=== PATIENT | female | born 1975 ===

== ENCOUNTER → 2020-04-26 | Day surgery (SDC) | payer OTHER ==
[2020-04-24 16:22] VITALS: BMI 26.1
== END | disposition home or self-care (01) ==
LOC: EDBD → JASU-SURG 04:20 → EDBD 11:30
PROVIDERS: ATTEND Surgery
DX: Z53.8 Procedure and treatment not carried out for other reasons (principal)
CPT/HCPCS: 84703

== ENCOUNTER 2020-05-07 04:53 | Day surgery (SDC) | payer OTHER ==
[2020-05-06 10:52] VITALS: BMI 26.1
[~2020-05-07 04:53] MED LIST: LIDOCAINE HCL 1%, 10 MG/ML (20ML VIAL) NR ONE
[2020-05-07] MEDS ORDERED: METHYLENE BLUE 50 MG/10 ML AMPUL ONE (10:56)
[2020-05-07] MEDS ORDERED: DEXAMETHASONE SOD PHOSPHATE 4 MG/1 ML VIAL ONE (12:15)
[2020-05-07] MEDS ORDERED: LIDOCAINE HCL/PF 2% SDV 5ML VIAL ONE (12:15)
[2020-05-07] MEDS ORDERED: PROPOFOL 20 ML ONE (12:15)
[2020-05-07] MEDS ORDERED: MIDAZOLAM HCL 2 MG/2 ML SINGLE DOSE VIAL ONE (12:15)
[2020-05-07] MEDS ORDERED: ceFAZolin SODIUM 1 GM VIAL ONE (13:33)
[2020-05-07] MEDS ORDERED: LIDOCAINE HCL 1%, 10 MG/ML (20ML VIAL) NR ONE (13:48)
[2020-05-07] MEDS ORDERED: ONDANSETRON 4 MG/2 ML VIAL IVPUSH PRN (14:08)
[2020-05-07] MEDS ORDERED: oxyCODONE HCL 5 MG TABLET PO PRN (14:08)
[2020-05-07] MEDS ORDERED: LACTATED RINGERS SOLUTION 1,000 ML IV SCH (14:15)
[2020-05-07] MEDS ORDERED: KETOROLAC TROMETHAMINE 30 MG/1 ML VIAL ONE (14:34)
[2020-05-07] MEDS ORDERED: oxyCODONE HCL 5 MG TABLET ONE (15:54)
[2020-05-07 17:53] VITALS: BP 118/79; PULSE 72; TEMP 97.8
--- NOTE | 2020-05-10 17:20 | PATH ---
Surgical Pathology Report Patient Name: DAVIDA SPARKS [facility]. Rec. #: [id number] /Age/Gender: 1975 (Age: 44) / F Account: [id number] Location: [facility] SURGICAL Taken: 05/07/2020 Received: 05/08/2020 Reported: 05/10/2020 Physicians: Page Gutierrez M.D. Specimen(s) Received A: RIGHT AXILLARY SENTINEL LYMPH NODE #1 BLUE AND HOT B: RIGHT AXILLARY NON SENTINEL LYMPH NODE C: RIGHT AXILLARY SENTINEL LYMPH NODE #2 BLUE AND HOT D: RIGHT AXILLARY SENTINEL LYMPH NODE #3 BLUE AND HOT E: RIGHT BREAST LUMPECTOMY F: RIGHT BREAST NEW POSTERIOR MARGIN Clinical History Invasive Final Diagnosis A. AXILLARY SENTINEL LYMPH NODE #1, RIGHT, BLUE AND HOT, EXCISION: ONE LYMPH NODE WITH METASTATIC CARCINOMA (MACROMETASTASIS, > 2 MM, 08/02). TUMOR DEPOSIT MEASURES 1.7 CM IN GREATEST MICROSCOPIC DIMENSION. EXTRANODAL EXTENSION IDENTIFIED. B. AXILLARY NON-SENTINEL LYMPH NODE, RIGHT, EXCISION: ONE OF TWO LYMPH NODES WITH METASTATIC CARCINOMA (MACROMETASTASIS, > 2 MM, 08/03). TUMOR DEPOSIT MEASURES 1.3 CM IN GREATEST MICROSCOPIC DIMENSION. EXTRANODAL EXTENSION IDENTIFIED. C. AXILLARY SENTINEL LYMPH NODE #2, RIGHT, BLUE AND HOT, EXCISION: ONE LYMPH NODE WITH METASTATIC CARCINOMA (MICROMETASTASIS, > 0.2 MM-<2MM, 08/02) ON H&E AND CONFIRMED BY AE1/3 IMMUNOHISTOCHEMICAL STAIN. TUMOR DEPOSIT MEASURES 1 MM IN GREATEST MICROSCOPIC DIMENSION. EXTRANODAL EXTENSION IDENTIFIED. D. AXILLARY SENTINEL LYMPH NODE #3, RIGHT, BLUE AND HOT, EXCISION: ONE OF TWO LYMPH NODES WITH METASTATIC CARCINOMA (MACROMETASTASIS, > 2 MM, 08/03). TUMOR DEPOSIT MEASURES 4 MM IN GREATEST MICROSCOPIC DIMENSION. NO EXTRANODAL EXTENSION IDENTIFIED. E. BREAST, RIGHT, LUMPECTOMY: INVASIVE DUCTAL CARCINOMA, MODERATELY DIFFERENTIATED (TUBULE SCORE: 3/3, NUCLEAR GRADE: 2/3, MITOTIC SCORE: 1/3; TOTAL GRACE SCORE: 6/9). INVASIVE CARCINOMA MEASURES 2.6 CM IN GREATEST MICROSCOPIC DIMENSION. EXTENSIVE DUCTAL CARCINOMA IN SITU (DCIS), INTERMEDIATE NUCLEAR GRADE, SOLID AND CRIBRIFORM TYPES WITH MODERATE NECROSIS. LYMPHOVASCULAR INVASION IDENTIFIED. LATERAL SURGICAL MARGIN IS FOCALLY INVOLVED BY INVASIVE CARCINOMA (UNIFOCAL), REMAINDER OF MARGINS ARE >2 MM AWAY. DCIS IS 1 MM FROM INFERIOR AND LATERAL MARGINS SEE SPECIMEN F FOR FINAL POSTERIOR MARGIN. PRIOR BIOPSY SITE CHANGES ARE PRESENT. PATHOLOGIC STAGE (pTNM, 8th EDITION): pT2 pN2a. SEE CASE SUMMARY BELOW. F. BREAST, RIGHT, NEW POSTERIOR MARGIN, EXCISION: BENIGN FIBROADIPOSE TISSUE. Comment: Immunohistochemical stains performed and interpreted at [facility] show the invasive carcinoma is positive for AE1/3 and E-Cadherin (membranous), supportive of ductal phenotype. Case seen in intradepartmental review with consensus on diagnosis. Comments Breast Invasive Carcinoma: Surgical Pathology Case Summary (Based on AJCC TNM 8 th edition) Procedure _X_ Excision (less than total mastectomy) Specimen Laterality _X_ Right Tumor Size _X_ Greatest dimension of largest invasive focus >1 mm (millimeters): 26 mm Histologic Type _X_ Invasive carcinoma of no special type, NOS (ductal) . Histologic Grade (Grace Histologic Score) Glandular (Acinar)/Tubular Differentiation _X_ Score 3 (<10% of tumor area forming glandular/tubular structures) Nuclear Pleomorphism _X__ Score 2 Mitotic Rate _X_ Score 1 Overall Grade _X_ Grade 2 (scores of 6) Tumor Focality _X_ Single focus of invasive carcinoma Ductal Carcinoma In Situ (DCIS) _X_ DCIS is present in specimen _X_ Positive for extensive intraductal component ( EIC) Margins Invasive Carcinoma Margins _X__ Positive for invasive carcinoma _X__ Lateral Extent: Unifocal Remainder of margins: 2 mm from inferior and deep margins DCIS Margins _X__ Uninvolved by DCIS Distance from closest margin (millimeters): 1 mm from inferior and lateral margins Regional Lymph Nodes _X__ Involved by tumor cells Number of Lymph Nodes with Macrometastases (>2 mm): 3 Number of Lymph Nodes with Micrometastases (>0.2 mm to 2 mm and/or >200 cells): 1 Number of Lymph Nodes with Isolated Tumor Cells (=0.2 mm and =200 cells): 0 Size of Largest Metastatic Deposit (millimeters): 17 mm Extranodal Extension: _X_ Present Extent of extranodal extension: _X__ > 2 mm Treatment Effect in the Breast _X_ No known presurgical therapy Lymphovascular Invasion _X_ Present Pathologic Stage Classification (pTNM, AJCC 8th Edition) Primary Tumor (Invasive Carcinoma) (pT) _X__ pT2: Tumor >20 mm but =50 mm in greatest dimension Regional Lymph Nodes (pN) Category (pN) _X__ pN2a: Metastases in 4 to 9 axillary lymph nodes (at least 1 tumor deposit larger than 2.0 mm) Biomarker Studies Results of ER and DE studies performed on this specimen (block#E1) at [facility] are as follows: ER (clone [id number] mouse monoclonal antibody by [employer]): _X_ Positive: ~85% nuclear staining with moderate intensity PgR (clone16 mouse monoclonal antibody by [employer]): _X_ Positive: ~90% nuclear staining with strong intensity Results of Her2 and Ki67 studies will be reported separately in an addendum. Positive and negative controls (internal if applicable) show appropriate results. Formalin fixation and cold ischemic times are within current ASCO/CAP recommendations for ER, PgR and Her2 testing. Electronically Signed Anamika Terrazas M.D. Addendum Reported: 05/13/2020 Addendum Diagnosis Results of Her2 (IHC) & Ki-67 studies performed on block "E1" at [place], [place] ([id number]) are as follows: Her2 IHC (EP3 from [employer], formerly known as [id number], using [employer] Refine detection kit): 2+ (Equivocal). Ki-67: ~12% (Low proliferative index). HER2 by FISH pending, findings will be reported separately. Case discussed with Dr. Gutierrez, 05/13/2020. Positive and negative controls (internal if applicable) show appropriate results. Anamika Terrazas M.D. Gross Description A. Received in formalin labeled "right axillary sentinel lymph node #1," is a 2.3 x 1.3 x 0.9 cm lymph node with attached fat. The specimen is trisected and entirely submitted in 3 cassettes. B. Received in formalin labeled "right axillary non-sentinel lymph node," is a 2.5 x 2.1 x 0.8 cm lymph node with attached fat. The specimen is bisected. There is an additional 0.5 x 0.3 x 0.3 cm lymph node identified. The specimen is entirely submitted in 2 cassettes as follows: 2-6-fgcjiznw larger lymph node; 3-smaller lymph node. C. Received in formalin labeled "right axillary sentinel lymph node #2," is a 0.6 x 0.5 x 0.2 cm lymph node. The specimen is submitted in toto in one cassette. D. Received in formalin labeled "right axillary sentinel lymph node #3," are 2 nath lymph nodes with attached fat measuring 0.7 x 0.5 x 0.4 cm and 1.4 x 0.8 x 0.6 cm. The lymph nodes are bisected and entirely submitted in 2 cassettes as follows: 1-2-one bisected lymph node each. E. Received in formalin, labeled "right breast lumpectomy," is a 6.0 x 4.5 x 4.0 cm. nath-yellow, irregular, portion of fibroadipose tissue. There is a short suture marking the superior aspect and a long suture marking the lateral aspect, per the surgeon. There is no skin or nipple present. The specimen is inked as follows: superior and lateral blue; inferior green; medial yellow; anterior red; deep black. The specimen is serially sectioned from superior to inferior. Sectioning reveals a 2.3 x 2.0 x 1.3 cm nath, indurated, ill-defined mass. The mass focally abuts the lateral margin. The mass is 0.3 cm from the inferior margin and 0.4 cm from the deep margin. Engineer [employer] sections are submitted in 10 cassettes as follows: 1-full face section of mass with lateral and deep margins; 4-9-qyulmyvrky sections of mass with lateral and deep margins; 6-7-mass with inferior margin; 8-anterior margin; 9-medial margin; 10-superior margin. Total formalin fixation time breast: Approximately 24 hours F. Received in formalin labeled "right breast new posterior margin," is a 3.5 x 2.6 x 0.7 cm portion of fibroadipose tissue with a suture marking the old margin, per the surgeon. The new margin is inked blue and the specimen is serially sectioned. The specimen is entirely and sequentially submitted in 4 cassettes. 05/08/202005/08/2020
--- NOTE | 2020-05-13 19:17 | OP ---
DATE OF OPERATION: 05/07/2020 PREOPERATIVE DIAGNOSIS: Right breast cancer. POSTOPERATIVE DIAGNOSIS: Right breast cancer. PROCEDURE: Right breast lumpectomy with sentinel node biopsy. SURGEON: Page Gutierrez M.D. ANESTHESIA: General. ESTIMATED BLOOD LOSS: Minimal. COMPLICATIONS: None. This was a sterile procedure. INDICATION FOR PROCEDURE: Patient presented with a palpable mass in the upper inner right breast. Needle biopsy showed invasive carcinoma ER/[place] positive. My recommendation is for lumpectomy, sentinel node biopsy. The procedure was discussed and all her questions answered. PROCEDURE IN DETAIL: The patient was brought to [facility] in [place], was taken down to nuclear medicine, where I injected technetium sulfur colloid as an intradermal injection in the right breast 2 o'clock areolar border. She was then brought up into the operating room, and after induction of general anesthesia and IV antibiotics, 5 mL of isosulfan blue dye was injected into the right subareolar plexus, and the breast was massaged for 5 minutes. The right breast and axilla were then prepped and draped in usual sterile fashion. A 4-cm incision was made in the right axilla, carried down through the clavipectoral fascia to identify 3 sentinel lymph nodes and 1 nonsentinel node. These were sent to pathology for permanent section. There was no other blue dye, radioactivity or pathological appearing lymph nodes in the right axilla. Therefore, once hemostasis was assured, the right breast lumpectomy was performed. An incision was made in the upper inner right breast, and an en bloc lumpectomy was performed, tagged with a long stitch lateral, short stitch superior, and sent as right breast lumpectomy. I felt that was close posteriorly, therefore I took a new posterior margin with a stitch at the old margin, and sent as a separate specimen in formalin to pathology. Hemostasis assured with electrocautery. The parenchyma was approximated with interrupted 2-0 Vicryl, skin approximated with interrupted 3-0 Vicryl, and running 4-0 Biosyn. The axillary incision was also closed in routine fashion with interrupted 3-0 Vicryl, running 4-0 Biosyn. A sterile dressing with Tegaderm, 4x4s applied. She tolerated procedure well, extubated on the operating room table, taken to recovery in good condition. Mamadou [id number]
== END 2020-05-07 17:05 | disposition home or self-care (01) ==
LOC: JASU-SURG 04:53
PROVIDERS: ATTEND Surgery
PROC: 0HBT0ZZ Excision of Right Breast, Open Approach (ICD-10-PCS; principal; 2020-05-07 12:00)
PROC: 07B50ZX Excision of Right Axillary Lymphatic, Open Approach, Diagnostic (ICD-10-PCS; 2020-05-07 12:00)
DX: C50.911 Malignant neoplasm of unspecified site of right female breast (principal); C77.3 Secondary and unspecified malignant neoplasm of axilla and upper limb lymph nodes; Z17.0 Estrogen receptor positive status [ER+]
CPT/HCPCS: 78195-TC; 84703; 88307-TC; 88341-TC; 88342-TC; 94760; A9541; Q9968